=== PATIENT | female | born 1970 | race Caucasian/White ===

== ENCOUNTER → 2017-04-08 | Day surgery (SDC) | payer OTHER, BC ==
[~2017-04-08] MED LIST: ALLOPURINOL300 MG PO; BUPIVACAINE HCL 0.5% 10ML MPF VIAL INJ ONE; CEFAZOLIN SOD 2 GM/D5W 50ML 50 ML IV ONE; CITALOPRAM HBR20 MG PO; CLONAZEPAM1 MG PO; DEXAMETHASONE SOD PHOS INJ 4 MG/ML VIAL ONE; DICYCLOMINE HCL10 MG PO; FENTANYL CITRATE/PF 100MCG/2 ML INJ ONE; HYDROCHLOROTHIA25 MG PO; HYDROCODONE-AP1 EACH PO; HYDROMORPHONE 2MG/ML INJ ONE; KETOROLAC TROMETHAMINE 30 MG/ML VIAL ONE; LIDOCAINE HCL 2% LOCAL INJ 5 ML SDV VIAL INJ ONE; LISINOPRIL10 MG PO; METFORMIN HCL500 M2 PO; METHOCARBAMOL500 MG PO; METOPROLOL TART25 MG PO; ONDANSETRON HCL INJ 2 MG/ML VIAL ONE; PROPOFOL IV EMULSION 10 MG/ML 20 ML VIAL ONE; SEVOFLURANE INHAL SOLN 250 ML PEN BTL ONE; SYMBICORT 80-10.2 GM INH; VENTOLIN HFA18 GM INH; VIT E PO; Z METHYLPREDNISOLO PO; Z.0.ALLOPURINOL300 M PO
--- NOTE | 2017-06-17 14:17 | Operative Report ---
DATE OF PROCEDURE: April 08, 2017 PREOPERATIVE DIAGNOSES 1. Ganglion left foot. 2. 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 POSTOPERATIVE DIAGNOSES 1. Ganglion left foot. 1. 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 PROCEDURES PERFORMED 1. Excision of ganglion left foot. 2. Excision of coalition with spur removal of the left foot. PATHOLOGY: None. ANESTHESIA: A general anesthetic. HEMOSTASIS: A pneumatic ankle tourniquet at 250 mmHg. ESTIMATED BLOOD LOSS: Less than 10 mL. MATERIALS: Human allograft in order to prevent adhesion and to promote healing at the area. COMPLICATIONS: None. PROCEDURE IN DETAIL: Under mild sedation, the patient was brought to the operating room and placed on the operating table in the supine position. Following IV sedation, anesthesia was obtained with a general anesthetic. At this point, the left foot was scrubbed, prepped and draped in the usual aseptic manner. It was then lowered to the table. Attention was then directed to the dorsal aspect of the left foot where a linear incision was made overlying the ganglion cyst. The incision was deepened via sharp and blunt dissection until the wall of the ganglion cyst. The ganglion cyst was then isolated utilizing sharp dissection. It was removed, and it was passed from the operating table and sent for pathology. At this point, the stalk of the ganglion cyst was then taken down to the level of the coalition of the metatarsocuneiform joint. This was then cauterized with chemocautery. Attention was then directed to the dorsal aspect of the left foot where a linear incision was made overlying the coalition at the metatarsocuneiform joint. Utilizing sharp dissection, all the coalition was then removed. The area was then flushed with copious amount of normal sterile saline solution. The fat was inserted into the area in order to promote coalition again and give a spacer to the area. The area was then closed, closing the deepest layer with 3-0 Vicryl, 4-0 Vicryl and 4-0 nylon. Before closure, the use of human allograft was inserted into the area in order to prevent adhesions, to promote healing and to decrease the inflammatory response. Clean dressing was applied consisting of Adaptic ointment, 4 x 4's, Kerlix and an Oumar bandage. The tourniquet was deflated. There was noted to be a hyperemic response to all the digits. Patient tolerated the procedure and anesthesia well without complications, was transported to the recovery room with vital signs stable and neurovascular status intact to both feet. Patient will be discharged home once she meets criteria. She was given instructions to be nonweightbearing, to ice and elevate the foot while at rest, to follow up with me in the office and to call the office if any questions, concerns or any problems arise. Job#: [id number]
== END | disposition home or self-care (01) ==
LOC: OR 10:10
PROVIDERS: ATTEND Podiatrist Foot & Ankle Surgery
DX: M67.472 Ganglion, left ankle and foot (principal); Q66.89 Other specified congenital deformities of feet; M77.52 Other enthesopathy of left foot and ankle; J45.909 Unspecified asthma, uncomplicated; G47.33 Obstructive sleep apnea (adult) (pediatric); I10 Essential (primary) hypertension; E11.9 Type 2 diabetes mellitus without complications; K58.9 Irritable bowel syndrome, unspecified; K76.0 Fatty (change of) liver, not elsewhere classified; E66.01 Morbid (severe) obesity due to excess calories
CPT/HCPCS: 28090; 28122; 36415; 76000; 81025; 82948; C1762; J1100; J1170; J1885; J2001; J2405

== ENCOUNTER → 2021-03-20 | Day surgery (SDC) | payer BC, MEDICARE ==
[~2021-03-20] MED LIST changes: -BUPIVACAINE HCL 0.5% 10ML MPF VIAL INJ ONE; +BUPIVACAINE HCL 0.5% INJ 30 ML VIAL INJ ONE; -CEFAZOLIN SOD 2 GM/D5W 50ML 50 ML IV ONE; +DEXAMETHASONE SOD PHOS INJ 4 MG/ML SDV ONE; -DEXAMETHASONE SOD PHOS INJ 4 MG/ML VIAL ONE; +GABAPENTIN300 MG PO; -HYDROMORPHONE 2MG/ML INJ ONE; +IRON PO; +MIDAZOLAM HCL 2 MG/2 ML VIAL ONE; +MOBIC7.5 MG PO; +NEOSTIGMINE 1 MG/ML 10ML VIAL ONE; -ONDANSETRON HCL INJ 2 MG/ML VIAL ONE; +ONDANSETRON HCL INJ 2MG/ML 2ML 2 MG/ML VIAL ONE; +OS-CAL 500+D T1 EACH PO; +POVIDONE IODINE 0.05% 0.05 % ML PO ONE; -SEVOFLURANE INHAL SOLN 250 ML PEN BTL ONE; +SODIUM CHLORIDE 0.9% 50ML 100 ML ONE; +VITAMIN B12
[2021-03-20 11:25] VITALS: BP 124/83
== END | disposition home or self-care (01) ==
LOC: OR 08:18
PROVIDERS: ATTEND Podiatrist Foot & Ankle Surgery
DX: S92.145A Nondisplaced dome fracture of left talus, initial encounter for closed fracture (principal); X58.XXXA Exposure to other specified factors, initial encounter; M19.072 Primary osteoarthritis, left ankle and foot; G62.9 Polyneuropathy, unspecified; M65.872 Other synovitis and tenosynovitis, left ankle and foot; M25.772 Osteophyte, left ankle; R00.1 Bradycardia, unspecified; J45.909 Unspecified asthma, uncomplicated; I10 Essential (primary) hypertension; Z01.810 Encounter for preprocedural cardiovascular examination; Z01.812 Encounter for preprocedural laboratory examination; Z20.822 Contact with and (suspected) exposure to COVID-19; Z79.899 Other long term (current) drug therapy; Z68.37 Body mass index [BMI] 37.0-37.9, adult
CPT/HCPCS: 29898; 81025; 93005; J0690; J1100; J1885; J2001; J2250; J2405; J2704; J3010; U0002; J2710

== ENCOUNTER → 2024-11-24 | Day surgery (SDC) | payer MEDICARE ==
[~2024-11-24] MED LIST changes: +ACETAMINOPHEN 1000 MG/100 ML 100 ML IV ONE; -BUPIVACAINE HCL 0.5% INJ 30 ML VIAL INJ ONE; +DICLOFENAC SODI50 MG PO; +EPHEDRINE SULFATE INJ 50 MG/ML VIAL ONE; +FAMOTIDINE 20 MG/2 ML VIAL IV ONE; +HYDROCODON-ACE1 EA12 PO; +HYDROCODONE/APAP 7.5MG-325MG 1 EA TAB ONE; +LEXAPRO10 MG PO; +METHOCARBAMOL750 MG PO; -MIDAZOLAM HCL 2 MG/2 ML VIAL ONE; +MOUNJARO12.5 MG/0. SQ; +MULTI-VITAMIN1 EACH PO; -NEOSTIGMINE 1 MG/ML 10ML VIAL ONE; +PANTOPRAZOLE SO40 MG PO; -POVIDONE IODINE 0.05% 0.05 % ML PO ONE; +SEVOFLURANE INHAL SOLN 250 ML PEN BTL ONE; -SODIUM CHLORIDE 0.9% 50ML 100 ML ONE; +SODIUM CHLORIDE 0.9% INJ 10 ML VIAL ONE; +SUCRALFATE1 GM PO; +VALACYCLOVIR500 MG PO; +VITAMIN D250 MCG
[2024-11-24] MEDS: LACTATED RINGER'S 1,000 ML ONE (11:47)
[2024-11-24 13:18] VITALS: TEMP 97.9
[2024-11-24 14:30] VITALS: BP 123/81; PULSE 74; RESP 18; O2SAT 99
== END | disposition home or self-care (01) ==
LOC: OR 10:10
PROVIDERS: ATTEND Podiatrist Foot & Ankle Surgery
DX: M76.822 Posterior tibial tendinitis, left leg (principal); Q66.89 Other specified congenital deformities of feet; Q78.6 Multiple congenital exostoses; M25.40 Effusion, unspecified joint
CPT/HCPCS: 28116; 28200; 36415; 76000; 82948; 93005; C1713; J0131; J0690; J1100; J1308; J2003; J2405; J2704; J3010; J7121; Q4150; J1885